=== PATIENT | female | born 1965 | race Caucasian/White ===

== ENCOUNTER 2016-08-31 20:31 | Emergency (ER) | payer OTHER ==
[2016-08-31 20:42] VITALS: BP 138/92; PULSE 94; O2SAT 96
[2016-08-31] MEDS ORDERED: Tessalon Perles 100 MG PO PRN (20:46)
[2016-08-31] MEDS ORDERED: Rocephin 1000 MG INJ IM ONE (20:47)
[2016-08-31] MEDS ORDERED: Zithromax 250 MG TABLET PO ONE (20:48)
[2016-08-31] MEDS ORDERED: TYLENOL 325 MG PO ONE (20:48)
[2016-08-31] MEDS ORDERED: Rocephin 1000 MG INJ ONE (20:53)
[2016-08-31] MEDS ORDERED: Zithromax 250 MG TABLET ONE (20:53)
[2016-08-31] MEDS ORDERED: TYLENOL 325 MG ONE (20:53)
[2016-08-31] MEDS ORDERED: XYLOCAINE 1% HCL 20 ML MDV ONE (20:54)
--- NOTE | 2016-08-31 20:54 | ERPHSYRPT ---
- History of Present Illness Time Seen by Provider: 08/31/16 20:41 Source: patient Exam Limitations: no limitations Physician History: SINCE YESTERDAY PT HAS HAD A NON-PRODUCTIVE COUGH, DIAPHORESIS, CHILLS AND HAS VOMITED X7 POST COUGH. TODAY PT HAS HAD A SORE THROAT, SORE CHEST AND BACK WITH COUGH MOSTLY. - Review of Systems Constitutional: Chills Ears, Nose, & Throat: Throat Pain Respiratory: Cough Cardiac: Other (SORE CHEST TODAY) Abdominal/Gastrointestinal: Vomiting Musculoskeletal: Back Pain (SORE MID BACK TODAY) Endocrine: Excessive Sweating All Other Systems: Reviewed and Negative - Nursing Vital Signs Nursing Vital Signs: Initial Vital Signs Temperature 98.5 F Temperature Source Oral Pulse Rate 94 Respiratory Rate 20 Blood Pressure [Right Arm] 138/92 - Physical Exam General Appearance: alert Eye Exam: PERRL/EOMI Ears, Nose, Throat Exam: TMs normal, moist mucous membranes, pharyngeal erythema Neck Exam: normal inspection Respiratory Exam: lungs clear Cardiovascular Exam: normal heart sounds Gastrointestinal/Abdomen Exam: soft, normal bowel sounds Back Exam: normal range of motion Extremity Exam: No pedal edema Neurologic Exam: alert, cooperative Skin Exam: warm, dry SpO2 Interpretation: normal SpO2: 96 Oxygen Delivery: Room Air - Course Nursing assessment & vital signs reviewed: Yes - Departure Time of Disposition: 20:56 Departure Disposition: Home Clinical Impression: PHARYNGITIS Condition: Fair Critical Care Time: No Instructions: Pharyngitis/Tonsillopharyngitis -- Adult Additional Instructions: FOLLOW UP WITH PRIVATE DOCTOR TOMORROW. Prescriptions: Azithromycin 250 mg [Zithromax 250 MG TABLET] 250 mg PO ZPACK #6 tablet Benzonatate [Tessalon Perle] 100 mg PO TID #20 capsule
== END 2016-08-31 21:31 | disposition home or self-care (01) ==
LOC: ED 20:31
DX: J02.9 Acute pharyngitis, unspecified (principal); R05 Cough; R11.10 Vomiting, unspecified; M54.9 Dorsalgia, unspecified
CPT/HCPCS: 96372; 99282; J0696; A9270-GY

== ENCOUNTER 2018-07-29 20:50 | Emergency (ER) | payer OTHER, SELFPAY ==
[2018-07-29 21:20] VITALS: BP 125/84; PULSE 86
--- NOTE | 2018-07-29 21:27 | ERPHSYRPT ---
- History of Present Illness Time Seen by Provider: 07/29/18 21:10 Source: patient Exam Limitations: no limitations Patient Subjective Stated Complaint: patient has had a cough x2 weeks, states ribs hurt now from coughing and has hx of bronchitis Triage Nursing Assessment: pt alert nad orietnedx3, able to ambulate by self, lungs crackles and some barking in cough, patient has some drainage in nares, skin warm dry and intact. pain in ribs Physician History: 52 y/o white female presents with coughing for 2 weeks. has rib pain. pt has taken codeine and hydrocodone cough medicine without issues. pt denies cp but has mild rib pain with coughing. denies fever and denies abd pain. no n/v/d. pts albuterol neb meds outdated so she did not use Timing/Duration: week(s) (2) Fever Severity: moderate Fever Therapy DRYWALL APPLICATOR: none Associated Symptoms: cough, muscle aches Allergies/Adverse Reactions: codeine Allergy (Verified 08/31/16 20:57) piroxicam [From Feldene] Allergy (Verified 08/31/16 20:57) hydrocodone Adverse Reaction (Verified 08/31/16 20:59) Home Medications: Citalopram Hydrobromide [Celexa] 1 tab DAILY 09/01/16 [History] Hx Tetanus, Diphtheria Vaccination/Date Given: Yes Hx Influenza Vaccination/Date Given: No Hx Pneumococcal Vaccination/Date Given: No Immunizations Up to Date: Yes - Review of Systems Constitutional: No Symptoms Eyes: No Symptoms Ears, Nose, & Throat: No Symptoms Respiratory: Cough, No Dyspnea, No Stridor, No Wheezing Cardiac: No Symptoms, No Chest Pain, No Palpitations, No Syncope Abdominal/Gastrointestinal: No Symptoms, No Abdominal Pain, No Nausea, No Vomiting, No Diarrhea Genitourinary Symptoms: No Symptoms, No Dysuria, No Frequency, No Hematuria Musculoskeletal: No Symptoms Skin: No Symptoms Neurological: No Symptoms Psychological: No Symptoms Endocrine: No Symptoms Hematologic/Lymphatic: No Symptoms Immunological/Allergic: No Symptoms All Other Systems: Reviewed and Negative - Past Medical History Pertinent Past Medical History: Yes Neurological History: No Pertinent History ENT History: No Pertinent History Cardiac History: No Pertinent History Respiratory History: Bronchitis Endocrine Medical History: No Pertinent History Musculoskeletal History: No Pertinent History GI Medical History: No Pertinent History History: No Pertinent History Psycho-Social History: Anxiety Female Reproductive Disorders: No Pertinent History - Past Surgical History Past Surgical History: Yes Neuro Surgical History: No Pertinent History Cardiac: No Pertinent History Respiratory: No Pertinent History Gastrointestinal: Appendectomy, Cholecystectomy Genitourinary: No Pertinent History Musculoskeletal: No Pertinent History Female Surgical History: Hysterectomy, Other Other Surgical History: ovarian - Social History Smoking Status: Never smoker Exposure to second hand smoke: No Drug Use: none Patient Lives Alone: No - Female History Hx Now: No - Nursing Vital Signs Nursing Vital Signs: Initial Vital Signs Temperature 97.7 F 07/29/18 20:50 Pulse Rate 86 07/29/18 20:50 Respiratory Rate 18 07/29/18 20:50 Blood Pressure 125/84 07/29/18 20:50 O2 Sat by Pulse Oximetry 98 07/29/18 20:50 Pain Scale Pain Intensity 3 - Physical Exam General Appearance: mild distress, alert, anxiety Eye Exam: PERRL/EOMI ENT Exam: normal ENT inspection, no apparent trauma, hearing grossly normal Neck Exam: normal inspection, non-tender, supple, full range of motion Respiratory Exam: normal breath sounds, chest non-tender, lungs clear, no respiratory distress, no accessory muscle use Cardiovascular/Chest Exam: normal heart sounds, regular rate/rhythm Gastrointestinal/Abdominal Exam: soft, non tender, no distention, no mass, no guarding Pelvic Exam: not done Rectal Exam: not done Extremity Exam: non-tender, normal range of motion, normal inspection Neurologic Exam: alert, oriented x 3, cooperative, branch account manager II-XII nml as tested Skin Exam: normal color, warm, dry Lymphatic: No adenopathy SpO2 Interpretation: normal SpO2: 98 O2 Delivery: Room Air - Course Nursing assessment & vital signs reviewed: Yes Ordered Tests: Active Orders 24 hr Category Date Time Status CHEST 1 VIEW (PORTABLE) Stat Exams 07/29/18 21:27 Taken Peak Expiratory Flow Rate ONCE RT 07/29/18 22:01 Completed Respiratory Therapy Assessment PRN RT 07/29/18 22:01 Completed Medication Summary Discontinued Medications Generic Name Dose Route Start Last Admin Trade Name Freq PRN Reason Stop Dose Admin Albuterol/Ipratropium Confirm 07/29/18 21:49 Duoneb 0.5-3 Mg/3 Ml Neb Administered 07/29/18 21:50 Dose 3 ml IH .STK-MED ONE Albuterol/Ipratropium 3 ml 07/29/18 21:50 07/29/18 21:50 Duoneb 0.5-3 Mg/3 Ml Neb IH 07/29/18 21:51 3 ml STAT ONE Administration Methylprednisolone Sodium Succinate 125 mg 07/29/18 21:40 07/29/18 21:53 Solu-Medrol 125 Mg IM 07/29/18 21:41 125 mg STAT ONE Administration Methylprednisolone Sodium Succinate Confirm 07/29/18 21:50 Solu-Medrol 125 Mg Administered 07/29/18 21:51 Dose 125 mg .ROUTE .STK-MED ONE Lab/Rad Data: Laboratory Results 07/29/18 Range/Units 21:42 Influenza Type A Ag NEGATIVE (NEGATIVE) Influenza Type B Ag NEGATIVE (NEGATIVE) RSV (PCR) NEGATIVE (Negative) Group A Strep Antibody NEGATIVE (NEGATIVE) - Progress Progress: improved, re-examined Progress Note: 07/29/18 22:08 cxr-no acute process Counseled pt/family regarding: lab results, diagnosis, need for follow-up, rad results - Departure Time of Disposition: 22:08 Departure Disposition: Home Clinical Impression: Bronchitis Condition: Stable Critical Care Time: No Referrals: ZARIA CUENCA MD [Primary Care Provider] - Additional Instructions: drink plenty of fluids. follow up with your primary doctor for further management Prescriptions: Azithromycin 250 mg [Zithromax 250 MG TABLET] 250 mg PO ZPACK #6 tablet Hydrocodone Bit/Acetaminophen [Hydrocodone-Acetaminophen Soln] 10 ml PO Q6H # 120 ml Prednisone 10 mg [Deltasone 10 mg] 10 mg PO TID #12 tablet
[2018-07-29] MEDS ORDERED: solu-MEDROL 125 MG IM ONE (21:40)
[2018-07-29] MEDS ORDERED: DUONEB 0.5-3 MG/3 ml Neb IH ONE ×2 (21:49→21:50)
[2018-07-29] MEDS ORDERED: solu-MEDROL 125 MG ONE (21:50)
[2018-07-29 22:09] VITALS: O2SAT 98
[2018-07-29 22:19] LABS: Group A Strep NEGATIVE (NEGATIVE); INFLUENZA A NEGATIVE (NEGATIVE); INFLUENZA B NEGATIVE (NEGATIVE); RESPIRATORY SYNCTIAL VIRUS NEGATIVE (Negative)
[2018-07-29] MEDS ORDERED: Rocephin 1000 MG INJ IM ONE (22:25)
[2018-07-29] MEDS ORDERED: HYDROCODONE-ACETAMIN 2.5-108/5 ML SOLUTION PO STA (22:25)
[2018-07-29] MEDS ORDERED: Rocephin 1000 MG INJ ONE (22:42)
[2018-07-29] MEDS ORDERED: HYDROCODONE-ACETAMIN 2.5-108/5 ML SOLUTION ONE (22:42)
--- NOTE | 2018-07-30 08:42 | XRAY ---
Indication: Cough. Bronchitis. Comparison: None Portable chest demonstrates normal heart and lungs. Bony thorax intact with mild scoliosis.
== END 2018-07-29 23:13 | disposition home or self-care (01) ==
LOC: ED 20:50
DX: J40 Bronchitis, not specified as acute or chronic (principal); F41.9 Anxiety disorder, unspecified
CPT/HCPCS: 71045; 87631; 87651; 94150; 94640; 96372; 99284; J0696; J2930; A9270-GY

== ENCOUNTER 2021-06-06 09:44 | Emergency (ER) | payer OTHER ==
[2021-06-06] MEDS ORDERED: BABY ASPIRIN 81 MG CHEW PO ONE (09:48)
--- NOTE | 2021-06-06 09:48 | ERPHSYRPT ---
- History of Present Illness Time Seen by Provider: 06/06/21 09:48 Historian: patient Exam Limitations: no limitations Physician History: This is a 55-year-old white female who is a former smoker quitting in 2007 and presents with central substernal ache/pressure that came on this morning. She was not over exerting herself. The pain described as nonradiating. Patient is a strong family history of heart disease. Patient herself has never been diagnosed with heart problems. She does not see a international trade analyst. She is not short of breath. She has no cough. She does have a history of gastroesophageal reflux disease and takes pantoprazole for it. She did take her medicine this morning. Her heartburn is usually subxiphoid and epigastric. This pain seemed different and therefore she wanted to be evaluated. Timing/Duration: today Activities at Onset: none Quality: aching, pressure Location: substernal, central Chest Pain Radiation: no radiation Severity of Pain-Max: mild Severity of Pain-Current: mild Modifying Factors: Improves With: nothing Associated Symptoms: denies symptoms Prior Chest Pain/Cardiac Workup: no prior chest pain, no prior cardiac workup Nitro Today/Relief: no nitro taken today Aspirin Treatment Today: no aspirin today (Patient does not want to take aspirin since she has an allergic reaction to piroxicam.) Allergies/Adverse Reactions: codeine Allergy (Verified 06/06/21 09:58) piroxicam [From Feldene] Allergy (Verified 06/06/21 09:58) hydrocodone Adverse Reaction (Verified 06/06/21 09:58) Home Medications: Citalopram Hydrobromide [Celexa] 1 tab DAILY 09/01/16 [History] Hx Tetanus, Diphtheria Vaccination/Date Given: Yes Hx Influenza Vaccination/Date Given: No Hx Pneumococcal Vaccination/Date Given: No Travel Risk - International Travel Have you traveled outside of the country in past 3 weeks: No - Coronavirus Screening Are you exhibiting any of the following symptoms?: No Close contact with a COVID-19 positive Pt in past 14-21 Days: No - Review of Systems Constitutional: No Symptoms Eyes: No Symptoms Ears, Nose, & Throat: No Symptoms Respiratory: No Symptoms Cardiac: Chest Pain (Described as a ache or pressure) Abdominal/Gastrointestinal: No Symptoms Genitourinary Symptoms: No Symptoms Musculoskeletal: No Symptoms Skin: No Symptoms Neurological: No Symptoms Psychological: No Symptoms Endocrine: No Symptoms Hematologic/Lymphatic: No Symptoms Immunological/Allergic: No Symptoms All Other Systems: Reviewed and Negative - Past Medical History Pertinent Past Medical History: Yes Neurological History: No Pertinent History ENT History: No Pertinent History Cardiac History: No Pertinent History Respiratory History: Bronchitis Endocrine Medical History: No Pertinent History Musculoskeletal History: No Pertinent History GI Medical History: No Pertinent History History: No Pertinent History Psycho-Social History: Anxiety Female Reproductive Disorders: No Pertinent History - Past Surgical History Past Surgical History: Yes Neuro Surgical History: No Pertinent History Cardiac: No Pertinent History Respiratory: No Pertinent History Gastrointestinal: Appendectomy, Cholecystectomy Genitourinary: No Pertinent History Musculoskeletal: No Pertinent History Female Surgical History: Hysterectomy, Other Other Surgical History: ovarian - Social History Smoking Status: Never smoker Exposure to second hand smoke: No Drug Use: none Patient Lives Alone: No - Nursing Vital Signs Nursing Vital Signs: Initial Vital Signs Temperature 97.7 F 06/06/21 09:48 Pulse Rate 78 06/06/21 09:48 Respiratory Rate 21 06/06/21 09:48 Blood Pressure 144/82 06/06/21 09:48 O2 Sat by Pulse Oximetry 97 06/06/21 09:48 Pain Scale Pain Intensity 2 - Physical Exam General Appearance: no apparent distress, alert, anxiety Eye Exam: PERRL/EOMI, eyes nml inspection Ears, Nose, Throat Exam: normal ENT inspection, moist mucous membranes, tonsillar exudate Neck Exam: normal inspection, non-tender, supple Respiratory Exam: normal breath sounds, chest tenderness, lungs clear, airway intact, No respiratory distress Cardiovascular Exam: regular rate/rhythm, normal heart sounds, normal peripheral pulses Gastrointestinal/Abdomen Exam: soft, normal bowel sounds, No tenderness, No guarding Pelvic Exam: not done Rectal Exam: not done Back Exam: normal inspection, normal range of motion, No CVA tenderness, No vertebral tenderness Extremity Exam: normal inspection, normal range of motion, pelvis stable Neurologic Exam: alert, oriented x 3, cooperative, supervisor title II-XII nml as tested, normal mood/affect, nml cerebellar function, nml station & gait, sensation nml Skin Exam: normal color, warm, dry Lymphatic Exam: No adenopathy SpO2 Interpretation: normal O2 Delivery: Room Air - Course Nursing assessment & vital signs reviewed: Yes EKG Interpreted by Me: RATE (84), Sinus Rhythm, NORMAL AXIS, NORMAL INTERVALS, NORMAL QRS, NORMAL ST-T, Other (No acute ischemic changes on today's EKG. No comparison EKG available.) Ordered Tests: Active Orders 24 hr Category Date Time Status Clinical Recruiter STAT Care 06/06/21 09:49 Active EKG-ER Only STAT Care 06/06/21 09:48 Active IV Insertion STAT Care 06/06/21 09:48 Active Pulse Oximetry (ED) STAT Care 06/06/21 09:49 Active CHEST 1 VIEW (PORTABLE) Stat Exams 06/06/21 09:48 Completed CBC W DIFF Stat Lab 06/06/21 10:18 Completed CMP Stat Lab 06/06/21 10:18 Completed D-DIMER QUANTITATIVE Stat Lab 06/06/21 10:18 Completed NT PRO BNP Stat Lab 06/06/21 10:18 Completed PROTIME WITH INR Stat Lab 06/06/21 10:18 Completed TROPONIN Q3H Lab 06/06/21 10:18 Completed TROPONIN Q3H Lab 06/06/21 13:00 Ordered TROPONIN Q3H Lab 06/06/21 16:00 Ordered TROPONIN Q3H Lab 06/06/21 19:00 Ordered TROPONIN Q3H Lab 06/06/21 22:00 Ordered Medication Summary Discontinued Medications Generic Name Dose Route Start Last Admin Trade Name Freq PRN Reason Stop Dose Admin Al Hydrox/Mg Hydrox/Simethicone Confirm 06/06/21 10:17 Mag Hydrox/Al Hydrox/Simeth 30 Ml Udcup Administered 06/06/21 10:18 Dose 30 ml .ROUTE .STK-MED ONE Aspirin 324 mg 06/06/21 09:48 06/06/21 10:20 Aspirin 81 Mg Tab.Chew PO 06/06/21 09:49 Not Given STAT ONE Aspirin Confirm 06/06/21 10:16 Aspirin 81 Mg Tab.Chew Administered 06/06/21 10:17 Dose 324 mg .ROUTE .STK-MED ONE Lidocaine HCl Confirm 06/06/21 10:17 Lidocaine Hcl Viscous 1 Ml Administered 06/06/21 10:18 Dose 15 ml .ROUTE .STK-MED ONE Magnesium Hydroxide 45 ml 06/06/21 10:02 06/06/21 10:21 Mag Hydrx/Alum Hyd/Simeth/Lido 45 Ml Bottle PO 06/06/21 10:03 45 ml STAT ONE Administration Morphine Sulfate 2 mg 06/06/21 10:01 06/06/21 10:19 Morphine Sulfate 2 Mg/Ml Inj IV 06/06/21 10:02 2 mg STAT ONE Administration Morphine Sulfate Confirm 06/06/21 10:17 Morphine Sulfate 2 Mg/Ml Inj Administered 06/06/21 10:18 Dose 2 mg .ROUTE .STK-MED ONE Ondansetron HCl 4 mg 06/06/21 10:01 06/06/21 10:20 Ondansetron Hcl 4 Mg/2 Ml Vial IV 06/06/21 10:02 4 mg STAT ONE Administration Ondansetron HCl Confirm 06/06/21 10:16 Ondansetron Hcl 4 Mg/2 Ml Vial Administered 06/06/21 10:17 Dose 4 mg .ROUTE .STK-MED ONE Lab/Rad Data: Laboratory Result Diagrams 06/06/21 10:18 06/06/21 10:18 Laboratory Results 06/06/21 06/06/21 06/06/21 Range/Units 10:18 10:18 10:18 WBC (4.0-10.5) K/mm3 RBC (4.1-5.4) M/mm3 Hgb (12.0-16.0) gm/dl Hct (35-47) % MCV (78-100) fl MCH (26-32) pg MCHC (32-36) g/dl RDW (11.5-14.0) % Plt Count (150-450) K/mm3 MPV (7.5-11.0) fl Gran % (36.0-66.0) % Eos # (Auto) (0-0.5) Absolute Lymphs (auto) (1.0-4.6) Absolute Monos (auto) (0.0-1.3) Lymphocytes % (24.0-44.0) % Monocytes % (0.0-12.0) % Eosinophils % (0.00-5.0) % Basophils % (0.0-0.4) % Absolute Granulocytes (1.4-6.9) Basophils # (0-0.4) PT 12.3 (9.4-12.5) SECONDS INR 1.04 (0.8-3.0) D-Dimer < 215 L (215-500) ng/mL Sodium 137 (137-145) mmol/L Potassium 4.0 (3.5-5.1) mmol/L Chloride 102 (98-107) mmol/L Carbon Dioxide 26 (22-30) mmol/L Anion Gap 13.3 (5-15) MEQ/L BUN 18 H (7-17) mg/dL Creatinine 0.74 (0.52-1.04) mg/dL Estimated GFR > 60.0 ML/MIN Glucose 282 H (74-106) mg/dL Calcium 9.3 (8.4-10.2) mg/dL Total Bilirubin 0.90 (0.2-1.3) mg/dL AST 23 (14-36) U/L ALT 26 (0-35) U/L Alkaline Phosphatase 65 (38-126) U/L Troponin I < 0.012 (0.000-0.034) ng/mL NT-Pro-B Natriuret Pep 37.1 (0-900) pg/mL Serum Total Protein 7.0 (6.3-8.2) g/dL Albumin 4.4 (3.5-5.0) g/dL 06/06/21 Range/Units 10:18 WBC 7.2 (4.0-10.5) K/mm3 RBC 3.47 L (4.1-5.4) M/mm3 Hgb 10.9 L (12.0-16.0) gm/dl Hct 32.0 L (35-47) % MCV 92.2 (78-100) fl MCH 31.4 (26-32) pg MCHC 34.1 (32-36) g/dl RDW 13.6 (11.5-14.0) % Plt Count 241 (150-450) K/mm3 MPV 9.8 (7.5-11.0) fl Gran % 59.7 (36.0-66.0) % Eos # (Auto) 0.83 H (0-0.5) Absolute Lymphs (auto) 1.58 (1.0-4.6) Absolute Monos (auto) 0.43 (0.0-1.3) Lymphocytes % 22.0 L (24.0-44.0) % Monocytes % 6.0 (0.0-12.0) % Eosinophils % 11.5 H (0.00-5.0) % Basophils % 0.8 (0.0-0.4) % Absolute Granulocytes 4.29 (1.4-6.9) Basophils # 0.06 (0-0.4) PT (9.4-12.5) SECONDS INR (0.8-3.0) D-Dimer (215-500) ng/mL Sodium (137-145) mmol/L Potassium (3.5-5.1) mmol/L Chloride (98-107) mmol/L Carbon Dioxide (22-30) mmol/L Anion Gap (5-15) MEQ/L BUN (7-17) mg/dL Creatinine (0.52-1.04) mg/dL Estimated GFR ML/MIN Glucose (74-106) mg/dL Calcium (8.4-10.2) mg/dL Total Bilirubin (0.2-1.3) mg/dL AST (14-36) U/L ALT (0-35) U/L Alkaline Phosphatase (38-126) U/L Troponin I (0.000-0.034) ng/mL NT-Pro-B Natriuret Pep (0-900) pg/mL Serum Total Protein (6.3-8.2) g/dL Albumin (3.5-5.0) g/dL - Progress Air Movement: good Progress Note: 06/06/21 11:34 Chest x-ray shows no acute cardiopulmonary process. Medical decision making: This patient's chest pain has resolved. She herself has not had any diagnosed cardiac issues. However, given her strong family history, it is recommended to the patient that she follows up with her primary care provider today to make arrangements for follow-up appointment with a international trade analyst to obtain baseline studies. Blood Culture(s) Obtained: No Antibiotics given: No Counseled pt/family regarding: lab results, diagnosis, need for follow-up, rad results - Departure Departure Disposition: Home Clinical Impression: Non-cardiac chest pain Condition: Stable Critical Care Time: No Referrals: ZARIA CUENCA MD [Primary Care Provider] - Follow up/PCP as directed Additional Instructions: Continue medication as prescribed. Call your primary care doctor today for referral to a international trade analyst to obtain baseline studies and evaluation. Return to the emergency department if symptoms recur.
[2021-06-06] MEDS ORDERED: Zofran 4 MG/2 ML VIAL IV ONE (10:01)
[2021-06-06] MEDS ORDERED: MORPHINE SULFATE 2 MG INJ IV ONE (10:01)
[2021-06-06] MEDS ORDERED: GI COCKTAIL 45 ML (Maalox/Lidocaine) PO ONE (10:02)
[2021-06-06] MEDS ORDERED: BABY ASPIRIN 81 MG CHEW ONE (10:16)
[2021-06-06] MEDS ORDERED: Zofran 4 MG/2 ML VIAL ONE (10:16)
[2021-06-06] MEDS ORDERED: XYLOCAINE HCl Viscous ONE (10:17)
[2021-06-06] MEDS ORDERED: MAALOX ES 30 ML UNIT DOSE ONE (10:17)
[2021-06-06] MEDS ORDERED: MORPHINE SULFATE 2 MG INJ ONE (10:17)
[2021-06-06 10:22] LABS: Absolute Neutrophil Ct (ANC) 4.29 (1.4-6.9); BASOPHIL % 0.8 % (0.0-0.4); Basophil (Absolute #) 0.06 (0-0.4); Eosinophil % 11.5 % (0.00-5.0); Eosinophil (Absolute #) 0.83 (0-0.5); Hemoglobin 10.9 gm/dl (12.0-16.0); Lymphocyte (Absolute #) 1.58 (1.0-4.6); Mean Cell Volume 92.2 fl (78-100); Mean Corpuscular Hemoglobin 31.4 pg (26-32); Mean Corpuscular Hgb Concent. 34.1 g/dl (32-36); Mean Platelet Volume 9.8 fl (7.5-11.0); Monocyte (Absolute #) 0.43 (0.0-1.3); Neutrophil % 59.7 % (36.0-66.0); Platelet Count 241 K/mm3 (150-450); Red Blood Count 3.47 M/mm3 (4.1-5.4); Red Cell Distribution Width 13.6 % (11.5-14.0); White Blood Count 7.2 K/mm3 (4.0-10.5)
--- NOTE | 2021-06-06 10:25 | XRAY ---
Indication: Chest pain. Comparison: July 29, 2018. Portable apical lordotic chest again demonstrates normal heart and lungs. Bony thorax intact with minimal degenerative changes. No new/acute findings.
[2021-06-06 10:41] LABS: ALBUMIN 4.4 g/dL (3.5-5.0); ALKALINE PHOSPHATASE 65 U/L (38-126); ANION GAP 13.3 MEQ/L (5-15); BLOOD UREA NITROGEN 18 mg/dL (7-17); CHLORIDE 102 mmol/L (98-107); Calcium 9.3 mg/dL (8.4-10.2); Carbon Dioxide 26 mmol/L (22-30); Creatinine 1 0.74 mg/dL (0.52-1.04); EST GLOMERULAR FILTRATION RATE > 60.0 ML/MIN; Glucose 282 mg/dL (74-106); NT PRO BNP 37.1 pg/mL (0-900); SGOT/AST 23 U/L (14-36); SGPT/ALT 26 U/L (0-35); SODIUM 137 mmol/L (137-145)
[2021-06-06 10:42] LABS: INR 1.04 (0.8-3.0); PROTIME 12.3 SECONDS (9.4-12.5)
[2021-06-06 11:00] LABS: D-DIMER QUANTITATIVE < 215 ng/mL (215-500)
[2021-06-06] MEDS ORDERED: Hydromorphone 1 mg/ml Injection IV ONE (11:49)
[2021-06-06] MEDS ORDERED: Hydromorphone 1 mg/ml Injection ONE (11:51)
--- NOTE | 2021-06-06 12:15 | XRAY ---
Indication: Headache. Multiple contiguous axial images obtained through the head without contrast. Comparison: None Normal appearing brain parenchyma, ventricles, and bony calvarium. Visualized paranasal sinuses and mastoid air cells are clear. Impression: Normal CT head without contrast exam.
[2021-06-06 12:45] VITALS: BP 112/81; PULSE 74; O2SAT 95
== END 2021-06-06 12:52 | disposition home or self-care (01) ==
LOC: ED 09:44
DX: R07.89 Other chest pain (principal); R51.9 Headache, unspecified; Z82.49 Family history of ischemic heart disease and other diseases of the circulatory system
CPT/HCPCS: 36000; 36415; 70450; 71045; 80053; 83880; 84484; 85025; 85379; 85610; 93005; 93041; 94760; 96374; 96375; 99284; J1170; J2270; J2405; A9270-GY

== ENCOUNTER 2021-08-23 10:24 | Emergency (ER) | payer OTHER ==
--- NOTE | 2021-08-23 10:27 | ERPHSYRPT ---
- History of Present Illness Time Seen by Provider: 08/23/21 10:27 Source: patient Exam Limitations: no limitations Physician History: This a 55-year-old white female who presents to the emergency department with tenderness in the medial aspect of her left ankle with associated mild bruising. She does not recall specifically injuring her left ankle. Patient has a history of diabetes, gastroesophageal reflux disease, anxiety and bronchitis. Patient also says there is a "knot" in the lateral aspect of her left thigh. Method of Injury: unknown Occurred: yesterday Quality: aching (Medial aspect left ankle) Lower Extremities Pain: ankle: left Modifying Factors: Improves With: movement, other (Palpation) Associated Symptoms: none Allergies/Adverse Reactions: codeine Allergy (Verified 06/06/21 09:58) piroxicam [From Feldene] Allergy (Verified 06/06/21 09:58) hydrocodone Adverse Reaction (Verified 06/06/21 09:58) Home Medications: Citalopram Hydrobromide [Celexa] 1 tab DAILY 09/01/16 [History] Metformin HCl 500 mg [Glucophage 500 MG] 500 mg PO BIDWM 08/23/21 [History] Hx Tetanus, Diphtheria Vaccination/Date Given: Yes Hx Influenza Vaccination/Date Given: No Hx Pneumococcal Vaccination/Date Given: No Travel Risk - International Travel Have you traveled outside of the country in past 3 weeks: No - Coronavirus Screening Are you exhibiting any of the following symptoms?: No Close contact with a COVID-19 positive Pt in past 14-21 Days: No - Vaccine Status Have you recieved a Covid-19 vaccination: Yes [employer] T[employer]: [facility] - Vaccination Dates Date of 2cond Vaccination (if applicable): unk - Review of Systems Constitutional: No Symptoms Eyes: No Symptoms Ears, Nose, & Throat: No Symptoms Respiratory: No Symptoms Cardiac: No Symptoms Abdominal/Gastrointestinal: No Symptoms Genitourinary Symptoms: No Symptoms Musculoskeletal: Joint Pain (Left ankle medial aspect) Skin: Other (kNot lateral aspect left thigh) Neurological: No Symptoms Psychological: No Symptoms Endocrine: No Symptoms Hematologic/Lymphatic: No Symptoms Immunological/Allergic: No Symptoms All Other Systems: Reviewed and Negative - Past Medical History Pertinent Past Medical History: Yes Neurological History: No Pertinent History ENT History: No Pertinent History Cardiac History: No Pertinent History Respiratory History: Bronchitis Endocrine Medical History: No Pertinent History Musculoskeletal History: No Pertinent History GI Medical History: No Pertinent History History: No Pertinent History Psycho-Social History: Anxiety Female Reproductive Disorders: No Pertinent History - Past Surgical History Past Surgical History: Yes Neuro Surgical History: No Pertinent History Cardiac: No Pertinent History Respiratory: No Pertinent History Gastrointestinal: Appendectomy, Cholecystectomy Genitourinary: No Pertinent History Musculoskeletal: No Pertinent History Female Surgical History: Hysterectomy, Other Other Surgical History: ovarian - Social History Smoking Status: Never smoker Exposure to second hand smoke: No Drug Use: none Patient Lives Alone: No - Nursing Vital Signs Nursing Vital Signs: Initial Vital Signs Temperature 97.8 F 08/23/21 10:27 Pulse Rate 97 H 08/23/21 10:27 Respiratory Rate 18 08/23/21 10:27 Blood Pressure 158/70 08/23/21 10:27 O2 Sat by Pulse Oximetry 92 L 08/23/21 10:27 Pain Scale Pain Intensity 4 - Physical Exam General Appearance: no apparent distress, alert, anxiety Eyes, Ears, Nose, Throat Exam: normal ENT inspection, moist mucous membranes Neck Exam: normal inspection, non-tender, supple, full range of motion Cardiovascular/Respiratory Exam: chest non-tender, no respiratory distress Gastrointestinal/Abdominal Exam: non-tender Hips Exam: right: non-tender, left: soft tissue tenderness (Mild to palpation in an area of a subcutaneous knot. No evidence of cellulitis or infection or abscess), bilateral: normal inspection, normal range of motion, no evidence of injury Legs Exam: bilateral leg: non-tender, normal inspection, normal range of motion, no evidence of injury Knees Exam: bilateral knee: non-tender, normal inspection, normal range of motion, no evidence of injury Ankle Exam: right ankle: non-tender, normal inspection, normal range of motion, no evidence of injury, left ankle: ecchymosis (Mild medial aspect), soft tissue tenderness (Mild medial aspect) Foot Exam: bilateral foot: non-tender, normal inspection, normal range of motion, no evidence of injury Neuro/Tendon Exam: normal sensation, normal motor functions, normal tendon func tions, responds to pain Mental Status Exam: alert, oriented x 3, cooperative Skin Exam: ecchymosis (Mild localized medial aspect left ankle) SpO2 Interpretation: normal O2 Delivery: Room Air - Course Nursing assessment & vital signs reviewed: Yes Ordered Tests: Active Orders 24 hr Category Date Time Status ANKLE (3 VIEWS) Stat Exams 08/23/21 10:52 Completed - Progress Progress: unchanged Progress Note: 08/23/21 11:40 X-ray left ankle shows no acute fracture or dislocation. There is mild soft tissue swelling present. Counseled pt/family regarding: diagnosis, need for follow-up, rad results - Departure Departure Disposition: Home Clinical Impression: Left ankle pain, Lipoma of left thigh Condition: Stable Critical Care Time: No Referrals: ZARIA CUENCA MD [Primary Care Provider] - Follow up/PCP as directed Additional Instructions: Ice bath left ankle 3 times a day for the next 2 days. Use Tylenol for pain control. Follow-up with your primary care doctor or [facility] orthopedic clinic for further evaluation and management.
--- NOTE | 2021-08-23 11:11 | XRAY ---
Indication: Pain. No known injury. Comparison: None 3 view left ankle demonstrates mild medial soft tissue swelling. No other bony, articular, or soft tissue abnormalities.
[2021-08-23 11:38] VITALS: BP 133/79; PULSE 69; O2SAT 98
== END 2021-08-23 11:52 | disposition home or self-care (01) ==
LOC: ED 10:24
DX: M25.572 Pain in left ankle and joints of left foot (principal); D17.24 Benign lipomatous neoplasm of skin and subcutaneous tissue of left leg; E11.9 Type 2 diabetes mellitus without complications; Z79.84 Long term (current) use of oral hypoglycemic drugs; K21.9 Gastro-esophageal reflux disease without esophagitis
CPT/HCPCS: 73610; 99283

== ENCOUNTER 2022-04-26 06:49 | Day surgery (SDC) | payer OTHER ==
[2022-04-26] MEDS ORDERED: LIDOCAINE HCL 2% 100 MG/5 ML IJ ONE (06:50)
[2022-04-26] MEDS ORDERED: DIPRIVAN 200 MG/20 ML IV ONE ×2 (08:33→08:42)
--- NOTE | 2022-04-26 10:26 | XRAY ---
Indication: Right at C2-C4 MBB. Intraoperative fluoroscopy provided for 22 seconds. 2 digital spot image submitted for interpretation demonstrates posterior needle tips projecting over the expected right C2-C4 nerve roots. Correlate with intraoperative findings/report.
--- NOTE | 2022-04-26 10:59 | XRAY ---
22 seconds fluoroscopy time used in surgery for right C2-C4 MBB.
[2022-04-26] MEDS ORDERED: Lactated Ringers 1,000 ML IV ONE (11:49)
== END 2022-04-26 09:10 | disposition home or self-care (01) ==
LOC: SDC-PAIN 06:49
PROVIDERS: ATTEND Psychiatry & Neurology Pain Medicine
DX: M47.812 Spondylosis without myelopathy or radiculopathy, cervical region (principal); E11.9 Type 2 diabetes mellitus without complications; Z79.899 Other long term (current) drug therapy
CPT/HCPCS: 64490; 64491; 72040; 77002; 82947; J2704

== ENCOUNTER 2022-05-25 06:55 | Day surgery (SDC) | payer OTHER ==
[2022-05-25] MEDS ORDERED: DIPRIVAN 200 MG/20 ML IV ONE (08:48)
[2022-05-25] MEDS ORDERED: Xylocaine-Mpf 2% 5 Ml Vial ONE (08:48)
--- NOTE | 2022-05-25 09:49 | XRAY ---
2 seconds fluoroscopy time in surgery. No procedure was performed.
[2022-05-25] MEDS ORDERED: Lactated Ringers 1,000 ML IV ONE (10:29)
== END 2022-05-25 09:15 | disposition home or self-care (01) ==
LOC: SDC-PAIN 06:55
PROVIDERS: ATTEND Psychiatry & Neurology Pain Medicine
DX: M47.812 Spondylosis without myelopathy or radiculopathy, cervical region (principal); E11.9 Type 2 diabetes mellitus without complications; Z79.899 Other long term (current) drug therapy
CPT/HCPCS: 64490; 77002; 82947; J2704

== ENCOUNTER 2022-06-21 06:49 | Day surgery (SDC) | payer OTHER ==
[2022-06-21] MEDS ORDERED: BUPIVACAINE 0.5% VIAL IJ ONE (06:50)
[2022-06-21] MEDS ORDERED: Ketamine HCl 50 MG/ML ONE (08:29)
[2022-06-21] MEDS ORDERED: Lactated Ringers 1,000 ML IV ONE (08:31)
--- NOTE | 2022-06-21 10:14 | XRAY ---
Indication: Right C2-C4 MBB. Intraoperative fluoroscopy provided for 31 seconds. 3 digital spot image submitted for interpretation demonstrates posterior needle tips projecting over the expected left right C2-C4 nerve roots. Correlate with intraoperative findings/report.
--- NOTE | 2022-06-21 10:24 | XRAY ---
31 seconds of fluoroscopy was used in surgery for a right C2-C4 MBB.
== END 2022-06-21 17:25 | disposition home or self-care (01) ==
LOC: SDC-PAIN 06:49
PROVIDERS: ATTEND Psychiatry & Neurology Pain Medicine
DX: M47.812 Spondylosis without myelopathy or radiculopathy, cervical region (principal); E11.9 Type 2 diabetes mellitus without complications; Z79.899 Other long term (current) drug therapy
CPT/HCPCS: 64490; 64491; 72040; 77002; 82947

== ENCOUNTER 2022-07-26 05:57 | Day surgery (SDC) | payer OTHER ==
[2022-07-26] MEDS ORDERED: Lactated Ringers 1,000 ML IV SCH (06:30)
[2022-07-26] MEDS ORDERED: DIPRIVAN 200 MG/20 ML IV ONE (07:37)
[2022-07-26] MEDS ORDERED: Versed 2 MG/2 ML Injection ONE (07:37)
[2022-07-26] MEDS ORDERED: Xylocaine-Mpf 2% 5 Ml Vial ONE (07:45)
[2022-07-26 08:23] VITALS: O2SAT 94
[2022-07-26 08:41] VITALS: BP 134/84; PULSE 79
--- NOTE | 2022-07-26 08:53 | OP ---
SURGERY DATE/TIME: 07/26/2022 0744 PREOPERATIVE DIAGNOSIS: Anemia. POSTOPERATIVE DIAGNOSIS: Normal exam. PROCEDURE: EGD. SURGEON: Logan Alejandra M.D. ANESTHESIA: MAC by Dick Garcia CRNA. ESTIMATED BLOOD LOSS: None. SPECIMENS: None. DESCRIPTION OF PROCEDURE: After informed written consent was obtained, the patient was taken to the endoscopy suite. She was placed in the left lateral decubitus position and a bite block inserted. Anesthesia was titrated to the desired level of consciousness. The endoscope was inserted into the posterior oropharynx and under direct visualization the esophagus was easily traversed. There was normal esophageal mucosal appearance free of any lesions or defects. Upon entering the stomach, the gastroesophageal junction likewise was normal. Gastric mucosa had a normal rugated gastric mucosal appearance with no obvious lesions or defects. The pylorus was traversed and the first and second portions of the duodenum likewise had a normal mucosal appearance. There were no obvious lesions or areas of bleeding encountered during the exam. Upon withdrawal all mucosal structures were noted to be within normal limits. The scope was removed. The patient was taken to the recovery room in good condition.
== END 2022-07-26 08:45 | disposition home or self-care (01) ==
LOC: SDC 05:57
PROVIDERS: ATTEND Family Medicine
DX: D64.9 Anemia, unspecified (principal)
CPT/HCPCS: J2250; J2704

== ENCOUNTER 2022-08-02 06:53 | Day surgery (SDC) | payer OTHER ==
[2022-08-02] MEDS ORDERED: LIDOCAINE HCL 1% 50 MG/5 ML VL PF IJ ONE (06:54)
[2022-08-02] MEDS ORDERED: Decadron 4 MG INJ IV ONE (06:54)
[2022-08-02] MEDS ORDERED: BUPIVACAINE 0.5% VIAL IJ ONE (06:54)
[2022-08-02] MEDS ORDERED: Versed 2 MG/2 ML Injection ONE (08:01)
[2022-08-02] MEDS ORDERED: DIPRIVAN 200 MG/20 ML IV ONE (08:01)
[2022-08-02] MEDS ORDERED: SUBLIMAZE 100 MCG/2 ML ONE (08:02)
--- NOTE | 2022-08-02 10:05 | XRAY ---
Indication: Right C2-C4 RFA. Intraoperative fluoroscopy provided for 39 seconds. 5 digital spot image submitted for interpretation demonstrates posterior needle tips projecting over the expected right C2-C4 nerve roots. Correlate with intraoperative findings/report.
--- NOTE | 2022-08-02 11:36 | XRAY ---
39 seconds of fluoroscopy was used in surgery for a right C2-C4 RFA.
[2022-08-02] MEDS ORDERED: Lactated Ringers 1,000 ML IV ONE (13:52)
== END 2022-08-02 08:50 | disposition home or self-care (01) ==
LOC: SDC-PAIN 06:53
PROVIDERS: ATTEND Psychiatry & Neurology Pain Medicine
DX: M47.812 Spondylosis without myelopathy or radiculopathy, cervical region (principal); E11.9 Type 2 diabetes mellitus without complications; Z79.899 Other long term (current) drug therapy
CPT/HCPCS: 64633; 64634; 72040; 77002; 82947; J1100; J2001; J2250; J2704; J3010

== ENCOUNTER 2022-11-29 08:10 | Emergency (ER) | payer OTHER ==
[2022-11-29] MEDS ORDERED: Sodium Chloride 0.9% 1000 ML 1,000 ML IV STA (08:22)
[2022-11-29] MEDS ORDERED: DUONEB 0.5-3 MG/3 ml Neb IH ONE ×2 (08:26→08:40)
[2022-11-29] MEDS ORDERED: Sodium Chloride 0.9% 1000 ML 1,000 ML ONE (08:33)
[2022-11-29 08:42] LABS: BASOPHIL % 0.5 % (0.0-0.4); Basophil (Absolute #) 0.03 x10^3/uL (0-0.4); Eosinophil (Absolute #) 0.19 x10^3/uL (0-0.5); Hematocrit 31.6 % (35-47); Hemoglobin 10.6 g/dL (12.0-16.0); IMMATURE GRAN # 0.03 x10^3u/L (0.00-0.03); IMMATURE GRAN % 0.5 % (0.00-0.4); Lymphocyte (Absolute #) 1.13 x10^3/uL (1.0-4.6); Lymphocytes % 17.8 % (24.0-44.0); Mean Cell Volume 91.9 fL (78-100); Mean Corpuscular Hemoglobin 30.8 pg (26-32); Mean Corpuscular Hgb Concent. 33.5 g/dL (32-36); Mean Platelet Volume 10.2 fL (7.5-11.0); Monocyte (Absolute #) 0.38 x10^3/uL (0.0-1.3); Neutrophil % 72.2 % (36.0-66.0); Platelet Count 195 x10^3/uL (150-450); Red Blood Count 3.44 x10^6/uL (4.1-5.4); Red Cell Distribution Width 13.8 % (11.5-14.0); White Blood Count 6.4 x10^3/uL (4.0-10.5)
--- NOTE | 2022-11-29 08:53 | XRAY ---
Indication: Pneumonia. Comparison: March 14, 2022 Portable chest is now underinflated and remains clear again with incidental medial left base calcified granuloma. Heart not enlarged. Bony thorax intact again with mild degenerative changes. Impression: Nonacute underinflated chest with chronic features.
[2022-11-29 08:56] LABS: ALBUMIN 4.1 g/dL (3.5-5.0); ALKALINE PHOSPHATASE 71 U/L (38-126); BLOOD UREA NITROGEN 16 mg/dL (7-17); CHLORIDE 100 mmol/L (98-107); Calcium 8.8 mg/dL (8.4-10.2); Carbon Dioxide 26 mmol/L (22-30); Creatinine 1 0.66 mg/dL (0.52-1.04); EST GLOMERULAR FILTRATION RATE > 60.0 ML/MIN; Glucose 334 mg/dL (74-106); SGOT/AST 28 U/L (14-36); SGPT/ALT 38 U/L (0-35); SODIUM 137 mmol/L (137-145); Total Protein 7.3 g/dL (6.3-8.2)
--- NOTE | 2022-11-29 09:01 | ERPHSYRPT ---
- History of Present Illness Time Seen by Provider: 11/29/22 08:14 Source: patient Exam Limitations: no limitations Patient Subjective Stated Complaint: C/O SOB for the past few days that has been getting increasingly worse. Denies fevers. C/O pain to back inbetween shoulder blades. Triage Nursing Assessment: Patient ambulated back to ER. She is alert and oriented. Patient is SOB with some labored breathing noted. Patient has a non- productive, dry cough. Coughing increases when attempting to deep breath. No abnormal lung sounds heard. Diaphoretic. Physician History: Patient is here with shortness of breath and back pain. Patient states that she has back pain between her shoulder blades. No falls or other trauma. Shortness of breath has been increasing over the past few days. No fever or chills, patient does not feel flulike symptoms. However she does complain of some increasing weakness. Patient has diabetes. States her sugar was greater than 400 last night. Timing/Duration: yesterday Allergies/Adverse Reactions: piroxicam [From [facility]] Allergy (Verified 11/29/22 08:14) Home Medications: Amlodipine Besylate 5 mg [Norvasc 5 mg] 2.5 mg PO DAILY 03/20/22 [History] Aspirin EC 81 mg [Ecotrin 81 mg] 81 mg PO DAILY 03/20/22 [History] Famotidine 40 mg PO DAILY 03/20/22 [History] Hydrocodone/Acetaminophen [Hydrocodone-Acetamin 5-325 mg] 1 tab PO UD PRN 03/20/22 [History] PANTOPRAZOLE 40 mg Tablet [Protonix 40MG Tablet] 40 mg PO DAILY 03/20/22 [History] Potassium Chloride [Klor-Con M20] 20 meq PO DAILY 03/20/22 [History] Rosuvastatin Calcium 20 mg PO DAILY 03/20/22 [History] Hx Tetanus, Diphtheria Vaccination/Date Given: Yes Hx Influenza Vaccination/Date Given: Yes Hx Pneumococcal Vaccination/Date Given: Yes Immunizations Up to Date: Yes Travel Risk - International Travel Have you traveled outside of the country in past 3 weeks: No - Coronavirus Screening Are you exhibiting any of the following symptoms?: Yes Symptoms: Cough: New Onset, Shortness of Breath, Headaches/Body Aches/Fatigue Close contact with a COVID-19 positive Pt in past 14-21 Days: No - Vaccine Status Have you recieved a Covid-19 vaccination: Yes [employer]: Pfizer - Vaccination Dates Date of 2cond Vaccination (if applicable): ? - Review of Systems Constitutional: No Fever, No Chills Eyes: No Symptoms Ears, Nose, & Throat: No Symptoms Respiratory: Dyspnea, No Cough Cardiac: No Chest Pain, No Edema, No Syncope Abdominal/Gastrointestinal: No Abdominal Pain, No Nausea, No Vomiting, No Diarrhea Genitourinary Symptoms: No Dysuria Musculoskeletal: Back Pain, No Neck Pain Skin: No Rash Neurological: No Dizziness, No Focal Weakness, No Sensory Changes Psychological: No Symptoms Endocrine: No Symptoms All Other Systems: Reviewed and Negative - Past Medical History Pertinent Past Medical History: Yes Neurological History: Peripheral Neuropathy ENT History: No Pertinent History Cardiac History: Coronary Artery Disease, High Cholesterol, Hypertension, Other Respiratory History: Asthma Endocrine Medical History: Diabetes Type II Musculoskeletal History: Osteoarthritis GI Medical History: GERD History: Other Psycho-Social History: Anxiety, Depression Female Reproductive Disorders: No Pertinent History Other Medical History: NUMBNESS INTO R PINKY, CRAMPS INTO THE R HAND. ALLERGIES, anemia - Past Surgical History Past Surgical History: Yes Neuro Surgical History: No Pertinent History Cardiac: Cardiac Catheterization Respiratory: No Pertinent History Gastrointestinal: Appendectomy, Cholecystectomy Genitourinary: No Pertinent History Musculoskeletal: No Pertinent History Female Surgical History: Hysterectomy, Other Other Surgical History: ovarian, ablasion to neck by Dr. Frazier, EGD with Dr. Alejandra - Social History Smoking Status: Never smoker Exposure to second hand smoke: No Drug Use: none Patient Lives Alone: No - Nursing Vital Signs Nursing Vital Signs: Initial Vital Signs Temperature 97 F 11/29/22 08:14 Pulse Rate 79 11/29/22 08:14 Respiratory Rate 32 H 11/29/22 08:14 Blood Pressure 146/91 11/29/22 08:14 O2 Sat by Pulse Oximetry 95 11/29/22 08:14 Pain Scale Pain Intensity 0 - Physical Exam General Appearance: no apparent distress, alert Eye Exam: PERRL/EOMI, eyes nml inspection Ears, Nose, Throat Exam: normal ENT inspection, TMs normal, pharynx normal, moist mucous membranes Neck Exam: normal inspection, non-tender, supple, full range of motion Respiratory Exam: normal breath sounds, lungs clear, No respiratory distress Cardiovascular Exam: regular rate/rhythm, normal heart sounds, normal peripheral pulses Gastrointestinal/Abdomen Exam: soft, normal bowel sounds, No tenderness, No mass Back Exam: normal inspection, normal range of motion, No CVA tenderness, No vertebral tenderness Extremity Exam: normal inspection, normal range of motion, pelvis stable Neurologic Exam: alert, oriented x 3, cooperative, normal mood/affect, nml cerebellar function, nml station & gait, sensation nml, No motor deficits Skin Exam: normal color, warm, dry, No rash Lymphatic Exam: No adenopathy SpO2: 97 - Course Nursing assessment & vital signs reviewed: Yes EKG Interpreted by Me: Sinus Rhythm Ordered Tests: Active Orders 24 hr Category Date Time Status Amphibious Operations Officer STAT Care 11/29/22 08:23 Completed EKG-ER Only STAT Care 11/29/22 08:22 Completed IV Insertion STAT Care 11/29/22 08:22 Completed CHEST 1 VIEW (PORTABLE) Stat Exams 11/29/22 08:23 Completed CTA ABD/PEL W AND/OR W/O CONTR [CT] Stat Exams 11/29/22 09:02 Completed CTA CHEST W AND/OR WO [CT] Stat Exams 11/29/22 09:02 Completed CBC W DIFF Stat Lab 11/29/22 08:30 Completed CMP Stat Lab 11/29/22 08:30 Completed CULTURE,URINE Stat Lab 11/29/22 09:54 Received D-DIMER QUANTITATIVE Stat Lab 11/29/22 08:30 Completed NT PRO BNPII Stat Lab 11/29/22 08:30 Completed PROCALCITONIN Stat Lab 11/29/22 08:30 Completed TROPONIN Q4H Lab 11/29/22 08:30 Completed TROPONIN Q4H Lab 11/29/22 11:32 Completed TROPONIN Q4H Lab 11/29/22 16:30 Ordered UA W/RFX UR CULTURE Stat Lab 11/29/22 09:54 Completed Respiratory Therapy Assessment DAILY RT 11/29/22 08:46 Completed Medication Summary Discontinued Medications Generic Name Dose Route Start Last Admin Trade Name Freq PRN Reason Stop Dose Admin Albuterol/Ipratropium 3 ml 11/29/22 08:26 11/29/22 08:42 Ipratropium/Albuterol Sulfate 3 Ml Ampul.Neb IH 11/29/22 08:27 3 ml STAT ONE Administration Albuterol/Ipratropium Confirm 11/29/22 08:40 Ipratropium/Albuterol Sulfate 3 Ml Ampul.Neb Administered 11/29/22 08:41 Dose 3 ml IH .STK-MED ONE Sodium Chloride 1,000 mls @ 999 mls/hr 11/29/22 08:22 11/29/22 10:05 Sodium Chloride 0.9% 1000 Ml IV 11/29/22 09:22 Infused .Q1H1M STA Infusion Sodium Chloride Confirm 11/29/22 08:33 Sodium Chloride 0.9% 1000 Ml Administered 11/29/22 08:34 Dose 1,000 mls @ ud .ROUTE .STK-MED ONE Morphine Sulfate 4 mg 11/29/22 10:05 11/29/22 10:24 Morphine Sulfate 4 Mg/Ml Injection IV 11/29/22 10:06 4 mg STAT ONE Administration Morphine Sulfate Confirm 11/29/22 10:23 Morphine Sulfate 4 Mg/Ml Injection Administered 11/29/22 10:24 Dose 4 mg .ROUTE .STK-MED ONE Lab/Rad Data: Laboratory Result Diagrams 11/29/22 08:30 11/29/22 08:30 Laboratory Results 11/29/22 11/29/22 11/29/22 Range/Units 11:32 09:54 08:30 WBC 6.4 (4.0-10.5) x10^3/uL RBC 3.44 L (4.1-5.4) x10^6/uL Hgb 10.6 L (12.0-16.0) g/dL Hct 31.6 L (35-47) % MCV 91.9 (78-100) fL MCH 30.8 (26-32) pg MCHC 33.5 (32-36) g/dL RDW 13.8 (11.5-14.0) % Plt Count 195 (150-450) x10^3/uL MPV 10.2 (7.5-11.0) fL Gran % 72.2 H (36.0-66.0) % Immature Gran % (Auto) 0.5 H (0.00-0.4) % Nucleat RBC Rel Count 0.0 (0.00-0.1) % Eos # (Auto) 0.19 (0-0.5) x10^3/uL Immature Gran # (Auto) 0.03 (0.00-0.03) x10^3u/L Absolute Lymphs (auto) 1.13 (1.0-4.6) x10^3/uL Absolute Monos (auto) 0.38 (0.0-1.3) x10^3/uL Absolute Nucleated RBC 0.00 (0.00-0.01) x10^3u/L Lymphocytes % 17.8 L (24.0-44.0) % Monocytes % 6.0 (0.0-12.0) % Eosinophils % 3.0 (0.00-5.0) % Basophils % 0.5 (0.0-0.4) % Absolute Granulocytes 4.60 (1.4-6.9) x10^3/uL Basophils # 0.03 (0-0.4) x10^3/uL D-Dimer (0.0-0.50) mg/L Sodium (137-145) mmol/L Potassium (3.5-5.1) mmol/L Chloride (98-107) mmol/L Carbon Dioxide (22-30) mmol/L Anion Gap (5-15) MEQ/L BUN (7-17) mg/dL Creatinine (0.52-1.04) mg/dL Estimated GFR ML/MIN Glucose (74-106) mg/dL Calcium (8.4-10.2) mg/dL Total Bilirubin (0.2-1.3) mg/dL AST (14-36) U/L ALT (0-35) U/L Alkaline Phosphatase (38-126) U/L Troponin I 0.012 (0.000-0.034) ng/mL NT-Pro-B Natriuret Pep (<300) pg/mL Serum Total Protein (6.3-8.2) g/dL Albumin (3.5-5.0) g/dL Procalcitonin (0.030-0.080) ng/mL Urine Color Yellow (Yellow) Urine Appearance Clear (Clear) Urine pH 5.5 (4.6-8.0) Ur Specific Arnold >=1.030 A (1.005-1.030) Urine Protein Negative (Negative) Urine Glucose (UA) 500 A (Negative) mg/dL Urine Ketones Negative (Negative) Urine Blood Negative (Negative) Urine Nitrite Negative (Negative) Urine Bilirubin Negative (Negative) Urine Urobilinogen 0.2 (0.2) mg/dL Ur Leukocyte Esterase Moderate A (Negative) U Hyaline Cast (Auto) NONE SEEN (0-2) /LPF Urine Microscopic RBC 0-2 (0-5) /HPF Urine Microscopic WBC 21-50 A (0-5) /HPF Ur Epithelial Cells Rare (None Seen) /HPF Urine Bacteria Rare A (None Seen) /HPF Urine Culture Reflexed YES (NO) Influenza Type A Ag (NEGATIVE) Influenza Type B Ag (NEGATIVE) RSV (PCR) (NEGATIVE) SARS-CoV-2 (PCR) (NEGATIVE) 11/29/22 11/29/22 11/29/22 Range/Units 08:30 08:30 08:30 WBC (4.0-10.5) x10^3/uL RBC (4.1-5.4) x10^6/uL Hgb (12.0-16.0) g/dL Hct (35-47) % MCV (78-100) fL MCH (26-32) pg MCHC (32-36) g/dL RDW (11.5-14.0) % Plt Count (150-450) x10^3/uL MPV (7.5-11.0) fL Gran % (36.0-66.0) % Immature Gran % (Auto) (0.00-0.4) % Nucleat RBC Rel Count (0.00-0.1) % Eos # (Auto) (0-0.5) x10^3/uL Immature Gran # (Auto) (0.00-0.03) x10^3u/L Absolute Lymphs (auto) (1.0-4.6) x10^3/uL Absolute Monos (auto) (0.0-1.3) x10^3/uL Absolute Nucleated RBC (0.00-0.01) x10^3u/L Lymphocytes % (24.0-44.0) % Monocytes % (0.0-12.0) % Eosinophils % (0.00-5.0) % Basophils % (0.0-0.4) % Absolute Granulocytes (1.4-6.9) x10^3/uL Basophils # (0-0.4) x10^3/uL D-Dimer (0.0-0.50) mg/L Sodium (137-145) mmol/L Potassium (3.5-5.1) mmol/L Chloride (98-107) mmol/L Carbon Dioxide (22-30) mmol/L Anion Gap (5-15) MEQ/L BUN (7-17) mg/dL Creatinine (0.52-1.04) mg/dL Estimated GFR ML/MIN Glucose (74-106) mg/dL Calcium (8.4-10.2) mg/dL Total Bilirubin (0.2-1.3) mg/dL AST (14-36) U/L ALT (0-35) U/L Alkaline Phosphatase (38-126) U/L Troponin I < 0.012 (0.000-0.034) ng/mL NT-Pro-B Natriuret Pep 29.9 (<300) pg/mL Serum Total Protein (6.3-8.2) g/dL Albumin (3.5-5.0) g/dL Procalcitonin 0.075 (0.030-0.080) ng/mL Urine Color (Yellow) Urine Appearance (Clear) Urine pH (4.6-8.0) Ur Specific Arnold (1.005-1.030) Urine Protein (Negative) Urine Glucose (UA) (Negative) mg/dL Urine Ketones (Negative) Urine Blood (Negative) Urine Nitrite (Negative) Urine Bilirubin (Negative) Urine Urobilinogen (0.2) mg/dL Ur Leukocyte Esterase (Negative) U Hyaline Cast (Auto) (0-2) /LPF Urine Microscopic RBC (0-5) /HPF Urine Microscopic WBC (0-5) /HPF Ur Epithelial Cells (None Seen) /HPF Urine Bacteria (None Seen) /HPF Urine Culture Reflexed (NO) Influenza Type A Ag NEGATIVE (NEGATIVE) Influenza Type B Ag NEGATIVE (NEGATIVE) RSV (PCR) NEGATIVE (NEGATIVE) SARS-CoV-2 (PCR) NEGATIVE (NEGATIVE) 11/29/22 11/29/22 Range/Units 08:30 08:30 WBC (4.0-10.5) x10^3/uL RBC (4.1-5.4) x10^6/uL Hgb (12.0-16.0) g/dL Hct (35-47) % MCV (78-100) fL MCH (26-32) pg MCHC (32-36) g/dL RDW (11.5-14.0) % Plt Count (150-450) x10^3/uL MPV (7.5-11.0) fL Gran % (36.0-66.0) % Immature Gran % (Auto) (0.00-0.4) % Nucleat RBC Rel Count (0.00-0.1) % Eos # (Auto) (0-0.5) x10^3/uL Immature Gran # (Auto) (0.00-0.03) x10^3u/L Absolute Lymphs (auto) (1.0-4.6) x10^3/uL Absolute Monos (auto) (0.0-1.3) x10^3/uL Absolute Nucleated RBC (0.00-0.01) x10^3u/L Lymphocytes % (24.0-44.0) % Monocytes % (0.0-12.0) % Eosinophils % (0.00-5.0) % Basophils % (0.0-0.4) % Absolute Granulocytes (1.4-6.9) x10^3/uL Basophils # (0-0.4) x10^3/uL D-Dimer < 0.19 (0.0-0.50) mg/L Sodium 137 (137-145) mmol/L Potassium 4.0 (3.5-5.1) mmol/L Chloride 100 (98-107) mmol/L Carbon Dioxide 26 (22-30) mmol/L Anion Gap 15.0 (5-15) MEQ/L BUN 16 (7-17) mg/dL Creatinine 0.66 (0.52-1.04) mg/dL Estimated GFR > 60.0 ML/MIN Glucose 334 H (74-106) mg/dL Calcium 8.8 (8.4-10.2) mg/dL Total Bilirubin 1.10 (0.2-1.3) mg/dL AST 28 (14-36) U/L ALT 38 H (0-35) U/L Alkaline Phosphatase 71 (38-126) U/L Troponin I (0.000-0.034) ng/mL NT-Pro-B Natriuret Pep (<300) pg/mL Serum Total Protein 7.3 (6.3-8.2) g/dL Albumin 4.1 (3.5-5.0) g/dL Procalcitonin (0.030-0.080) ng/mL Urine Color (Yellow) Urine Appearance (Clear) Urine pH (4.6-8.0) Ur Specific Arnold (1.005-1.030) Urine Protein (Negative) Urine Glucose (UA) (Negative) mg/dL Urine Ketones (Negative) Urine Blood (Negative) Urine Nitrite (Negative) Urine Bilirubin (Negative) Urine Urobilinogen (0.2) mg/dL Ur Leukocyte Esterase (Negative) U Hyaline Cast (Auto) (0-2) /LPF Urine Microscopic RBC (0-5) /HPF Urine Microscopic WBC (0-5) /HPF Ur Epithelial Cells (None Seen) /HPF Urine Bacteria (None Seen) /HPF Urine Culture Reflexed (NO) Influenza Type A Ag (NEGATIVE) Influenza Type B Ag (NEGATIVE) RSV (PCR) (NEGATIVE) SARS-CoV-2 (PCR) (NEGATIVE) - Progress Progress: improved Progress Note: 11/29/22 09:00 differential diagnosis includes: PNA, STEMI, NSTEMI, other infection, musculoskeletal pain, pneumothorax, DKA, PE, aortic dissection, pyelonephritis - We'll obtain basic labs, fluids, EKG, troponin, chest x-ray - EKG shows no ST changes - my read. See full read below. - O2 saturations consistently greater than 95%. - CXR shows no pneumonia, pneumothorax - my read 11/29/22 13:56 D-dimer did return negative. However given the fact that patient has back pain radiating into her back I do believe that we should check for a aortic dissection. CTA chest abdomen pelvis returned negative for any acute abdominal or aortic, thoracic issues. Patient had 2 negative troponins over 3 hours here. Shortness of breath, pain has been consistent since yesterday. Therefore less likely to be an acute myocardial infarction with 2 negative cardiac markers today. However, patient will still need follow-up with her acquisition advisor closely. Patient does have some signs of a UTI on UA. Given that she has some back pain with a positive UA, I do believe that pyelonephritis could be on her differential diagnosis for causing her symptoms today. We will treat her with antibiotics going home for this. We will treat her with Bactrim given that it is most likely pyelonephritis. Patient feels comfortable going home at this poi nt in time. She may return here sooner for any new or changing symptoms. Sylvester, she will have close cardiology follow-up as above. Counseled pt/family regarding: lab results, diagnosis, need for follow-up, rad results - Departure Departure Disposition: Home Clinical Impression: Shortness of breath, Back pain, UTI (urinary tract infection) Condition: Stable Critical Care Time: No Referrals: ALYSSA SNIDER [ACTIVE STAFF] - Follow up/PCP as directed Instructions: Shortness of Breath (Dyspnea) (DC) Prescriptions: Smz/Tmp Ds Tablet [Bactrim Ds Tablet] 1 udtab PO BID 14 Days #28 tablet Nitrofurantoin Macro 100 mg [Macrobid 100MG Capsule] 100 mg PO BID 5 Days #10 cap
[2022-11-29 09:08] LABS: NT PRO BNPII 29.9 pg/mL (<300); TROPONIN < 0.012 ng/mL (0.000-0.034)
[2022-11-29 09:12] LABS: INFLUENZA A NEGATIVE (NEGATIVE); INFLUENZA B NEGATIVE (NEGATIVE); RESPIRATORY SYNCTIAL VIRUS NEGATIVE (NEGATIVE); SARS-CoV-2 Xpert Express NEGATIVE (NEGATIVE)
--- NOTE | 2022-11-29 10:01 | XRAY ---
Indication: Aortic dissection. Conventional contrast enhanced CTA chest performed using 100 cc Isovue 370 contrast. 2-D sagittal and coronal reformatted images obtained. Additional 3-D reformatted images obtained using separate workstation. Comparison: None Thoracic aorta is normal in course and caliber with very minimal aortic arch arteriosclerotic calcifications. Negative for aneurysm/dissection. Widely patent branching right brachiocephalic, left common carotid, and left subclavian arteries. Heart is not enlarged. Tiny subcarinal and left infrahilar calcified nodes. No pathologic mediastinal/hilar lymphadenopathy. Lungs demonstrates small medial left posterior gutter calcified granuloma. Remaining lungs inflated and clear. Bony thorax intact. Limited upper abdomen demonstrates fatty liver, 14 cm splenomegaly, cholecystectomy clips, and 8 mm left renal cortical cyst. Impression: 1. Normal CTA chest with contrast exam. 2. Incidental fatty liver, splenomegaly, left renal cyst, and old granulomatous disease.
[2022-11-29] MEDS ORDERED: MORPHINE SULFATE 4 MG INJ IV ONE (10:05)
--- NOTE | 2022-11-29 10:05 | XRAY ---
Indication: Aortic dissection. Conventional contrast enhanced CTA abdomen/pelvis performed using 100 cc Isovue 370 contrast. 2-D sagittal and coronal reformatted images obtained. Additional 3-D reformatted images obtained using separate workstation. Comparison: None Minimal distal aortobiiliac arterial scattered calcifications. Negative for aneurysm/dissection. Widely patent branching celiac, superior mesenteric, inferior mesenteric, and single bilateral main renal arteries. Noncontrasted stomach and bowel loops appear nonobstructed. Mild diffuse scattered colonic fecal debris throughout. 21 m fatty hepatomegaly, 14.2 cm splenomegaly, cholecystectomy, and hysterectomy. No free fluid/air. 8 mm left upper renal and 1.3 cm right lower renal cortical cysts. Remaining pancreas, adrenal glands, kidneys, ureters, and bladder are unremarkable. No pathologic retroperitoneal lymphadenopathy. Osseous structures intact. Impression: 1. Normal CTA abdomen/pelvis with contrast exam. Minimal arteriosclerotic disease. 2. Mild diffuse fecal stasis. 3. Chronic findings including fatty hepatomegaly, splenomegaly, and bilateral renal cysts.
[2022-11-29 10:09] LABS: Appearance Clear (Clear); Bacteria Rare /HPF (None Seen); Bilirubin Negative (Negative); Blood Negative (Negative); Epithelial Cells Rare /HPF (None Seen); Glucose, Urine 500 mg/dL (Negative); Hyaline Casts NONE SEEN /LPF (0-2); Ketones Negative (Negative); Leukocyte Esterase Moderate (Negative); Nitrite Negative (Negative); Ph 5.5 (4.6-8.0); Protein,Urine Dip Negative (Negative); RBC 0-2 /HPF (0-5); Specific Gravity >=1.030 (1.005-1.030); Urobilinogen 0.2 mg/dL (0.2); WBC 21-50 /HPF (0-5)
[2022-11-29 10:16] LABS: ADD URINE CULTURE? YES (NO)
[2022-11-29] MEDS ORDERED: MORPHINE SULFATE 4 MG INJ ONE (10:23)
[2022-11-29 12:30] VITALS: O2SAT 97
[2022-11-29 12:36] VITALS: BP 127/73; PULSE 79
== END 2022-11-29 12:57 | disposition home or self-care (01) ==
LOC: ED 08:10
DX: N39.0 Urinary tract infection, site not specified (principal); R06.02 Shortness of breath; M54.9 Dorsalgia, unspecified; R53.1 Weakness; E78.5 Hyperlipidemia, unspecified; I10 Essential (primary) hypertension; E11.42 Type 2 diabetes mellitus with diabetic polyneuropathy; Z79.891 Long term (current) use of opiate analgesic; Z79.899 Other long term (current) drug therapy
CPT/HCPCS: 0241U; 36000; 36415; 71045; 71275; 74174; 80053; 81001; 83880; 84145; 84484; 85025; 85379; 87086; 93005; 93041; 94640; 96374; 99284; J2270; A9270-GY